=== PATIENT | female | born 1985 | race American Indian/Alaskan Native ===

== ENCOUNTER 2018-03-04 12:11 | Emergency (ER) | payer MEDICARE, MEDICAID ==
[2018-03-04 12:11] VITALS: BMI 44.6
[2018-03-04 12:32] VITALS: TEMP 98.3; O2SAT 99
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
[2018-03-04 14:44] VITALS: BP 113/78; PULSE 106; RESP 20
== END 2018-03-04 14:46 | disposition home or self-care (01) ==
LOC: C.ER 12:11
DX: O26.892 Other specified pregnancy related conditions, second trimester (principal); Z3A.00 Weeks of gestation of pregnancy not specified